=== PATIENT | male | born 1960 | race African-American/Black ===

== ENCOUNTER 2020-06-19 08:54 | Emergency (ER) | payer OTHER, BC ==
[~2020-06-19] VITALS: Ht 182.9 cm; Wt 89.1 kg
[2020-06-19] MEDS ORDERED: IBUPROFEN 600 MG TAB PO STA (09:29)
[2020-06-19] MEDS ORDERED: CYCLOBENZAPRINE HCL 10 MG TAB PO ONE (09:30)
[2020-06-19] MEDS ORDERED: CYCLOBENZAPRINE5 MG PO (10:46)
[2020-06-19] MEDS ORDERED: NAPROSYN500 MG PO (10:46)
[2020-06-19 10:56] VITALS: BP 159/92
== END 2020-06-19 10:54 | disposition home or self-care (01) ==
LOC: FSED 09:23
DX: S00.83XA Contusion of other part of head, initial encounter (principal); S13.4XXA Sprain of ligaments of cervical spine, initial encounter; V43.52XA Car driver injured in collision with other type car in traffic accident, initial encounter; Y92.488 Other paved roadways as the place of occurrence of the external cause; S40.011A Contusion of right shoulder, initial encounter
CPT/HCPCS: 70450; 72125; 99284